=== PATIENT | female | born 1995 | race Caucasian/White ===

== ENCOUNTER 2018-04-11 13:11 | Inpatient (IN) ==
[2018-04-11] MEDS ORDERED: Oxytocin 30 Units/500ml Premix 30 UNITS/500 ML BAG IV.SIG ONE (14:10)
[2018-04-11] MEDS ORDERED: Sod Chloride 0.9% Inj 1,000 ML IV.CONT PRN (14:10)
[2018-04-11] MEDS ORDERED: fentaNYL Citrate Inj 100 MCG/2 ML Ampul IV.PUSH PRN ×2 (14:10)
[2018-04-11] MEDS ORDERED: Naloxone Inj 0.4 MG/ML Vial IV.PUSH PRN (14:10)
[2018-04-11] MEDS ORDERED: Sodium Chlor 0.9% Inj 500 ML IV.SIG PRN (14:10)
[2018-04-11] MEDS ORDERED: Oxytocin 30 Units/500ml Premix 30 UNITS/500 ML BAG IV.SIG PRN (14:14)
[2018-04-11] MEDS ORDERED: Citric Acid/Sodium Citrate Liq 30 ML UDC PO SCH (14:15)
[2018-04-11] MEDS ORDERED: Betamethasone Sod Phos/Acetate Inj 30 MG/5 ML Vial IM ONE (14:15)
--- NOTE | 2018-04-11 14:20 | ED ---
History of Present Illness Primary Care Physician: No Primary Care Physician Chief Complaint: ROM History of Present Illness: Pt is a 22y/o G1 @ 34.4wks. She has PNC with [facility]. She presents today for ROM at 8am with continued leaking. She has mild cramping. No LOF or VB. is otherwise uncomplicated. Weeks Gestation:: 34 Para: 0 : 1 - Inpatient Certification I certify that the inpatient services were ordered in accordance with Medicare regulations governing the order. This includes certification that hospital inpatient services are reasonable and necessary and in the case of services not specified as inpatient-only under 42 CFR 419.22(n), that they are appropriately provided as inpatient services in accordance to with the 2-midnight benchmark under 43 CFR 412.3(e) Estimated Total Length of Stay (Days): 3 Plans for Post Hospital Care: Home Review of Systems All other systems reviewed negative except as stated in HPI [facility] - Medical History Medical History: Medical History (Last Updated 04/11/18 @ 14:16 by Shannan Jerome MD) H/O wisdom tooth extraction Seasonal allergies - Tobacco History Second Hand Smoke Exposure: No Tobacco Use In Past 30 Days: No Smoking Status: Never smoker - Alcohol History How Often Do You Have a Drink Containing Alcohol: Never - Travel History History of Recent Travel: No Recent Travel in the [place] Within the Last 8 Weeks: No Recent Travel Out of the Country Within the Last 8 Weeks: No Medications and Allergies Active Medications: Active Medications Betamethasone Acet/Betameth SodPhos (Celestone Soluspan Inj) 12 mg IM ONCE ONE Stop: 04/11/18 14:16 Calcium Gluconate (Calcium Gluconate Inj) 1 gm IV.PUSH ONCE PRN PRN Reason: Magnesium toxicity Citric Acid/Sodium Citrate (Sodium Citrate/Citric Acid Liq) 30 ml PO PROFESSOR OF LAW [facility] Stop: 04/15/18 14:14 Fentanyl Citrate (Fentanyl Inj) 50 mcg IV.PUSH Q1H PRN PRN Reason: Pain Scale 3 - 5 Fentanyl Citrate (Fentanyl Inj) 100 mcg IV.PUSH Q1H PRN PRN Reason: PAIN SCALE 6 TO 10 Lactated Ringer's (Lr 1000 Ml Inj) 1,000 mls @ 125 mls/hr IV.CONT .Q8H [facility] Lactated Ringer's (Lr 1000 Ml Inj) 1,000 mls @ 3,000 mls/hr IV.SIG UNSCH PRN PRN Reason: compromise or epidural Sodium Chloride (Ns Inj) 500 mls @ 1,000 mls/hr IV.SIG UNSCH PRN PRN Reason: SEE LABEL COMMENTS Sodium Chloride (Ns Inj) 1,000 mls @ 100 mls/hr IV.CONT .Q10H PRN PRN Reason: SEE LABEL COMMENTS Oxytocin (Pitocin 30 Units/Ns 500 Ml Premix) 30 units in 500 mls @ 999 mls/hr IV.SIG BOLUS ONE Stop: 04/11/18 14:40 Lidocaine HCl (Xylocaine 1% Inj) 0.1 ml I-DERMAL PRN PRN PRN Reason: For IV start Stop: 04/14/18 14:09 Lidocaine HCl (Xylocaine 1% Inj) 10 ml INFILTRATN PRN PRN PRN Reason: For episiotomy repair Stop: 04/13/18 14:09 Mineral Oil (Muri-Lube Oil) 10 ml TOPICAL PRN PRN PRN Reason: PRN perineal massage Naloxone HCl (Narcan Inj) 0.1 mg IV.PUSH Q2M PRN PRN Reason: for opiate reversal Ondansetron HCl (Zofran Inj) 4 mg IV.PUSH Q6H PRN PRN Reason: NAUSEA OR VOMITING Sodium Chloride (Ns Flush) 2 ml IV.FLUSH BID SHEELA Sodium Chloride (Ns Flush) 2 ml IV.FLUSH PRN PRN PRN Reason: FLUSH AFTER USING IV ACCESS Allergies Allergy/AdvReac Type Severity Reaction Status Date / Time No Known Allergies Allergy Verified 04/11/18 14:07 Exam Vital signs: Vital Signs 04/11/18 13:34 Temperature 98.3 F Pulse Rate 101 H Respiratory Rate 18 Blood Pressure 117/82 Narrative: General: well developed, well nourished, no acute distress HEENT: normocephalic atraumatic, extraocular movements intact, neck supple Abdomen: soft, gravid, nontender, nondistended Uterus: fundus soft Extremities: full range of motion Skin: normal coloration, no rashes, no suspicious skin lesions noted Neurologic: cranial nerves 2-12 grossly intact, normal muscle tone, normal gait Psychiatric: normal mood and affect, appropriate FHTs: 140s, not yet reactive, no decels, moderate variability [place]: ctx q1-2m Cvx: /-1 Assessment and Plan - Diagnosis (1) 34 weeks gestation of Code(s): Z3A.34 - 34 weeks gestation of Status: Acute (2) premature rupture of membranes (PPROM) with unknown onset of labor Code(s): O42.919 - premature rupture of membranes, unspecified as to length of time between rupture and onset of labor, unspecified trimester Status: Acute - Plan 22y/o G1 @ 34.4wks with PPROM. -- admit to L&D -- IOL with pitocin -- BMZ q12hr x2 (do not delay IOL) -- rapid GBS/Cx ordered and pending Dr. Johnson, ecological economist, notified of pt status and agrees with POC. She will assume care of the pt. Courtesy orders placed. Discharge Plan - Discharge Disposition Patient Disposition: 30 Still Patient - Physicians Team ED Provider: Shannan Jerome V Primary Care Provider: Primary Care Fátima Pollard
[2018-04-11 14:33] LABS: Baso % (Auto) 0.1 % (0.0-2.0); Eos # (Auto) 0.1 th/mm3 (0.0-0.4); Eos % (Auto) 0.6 % (0.0-4.0); Hematocrit 34.9 % (35.0-46.0); Hemoglobin 11.7 gm/dL (11.6-15.3); Lymph # (Auto) 1.8 th/mm3 (1.0-4.8); Lymph % (Auto) 14.4 % (9.0-44.0); Mean Corpuscular HGB Conc 33.5 % (32.0-36.0); Mean Corpuscular Volume 89.8 fL (80.0-100.0); Mean Platelet Volume 9.1 fL (7.0-11.0); Mono # (Auto) 0.7 th/mm3 (0.0-0.9); Mono % (Auto) 5.7 % (0.0-8.0); Neut # (Auto) 9.7 th/mm3 (1.8-7.7); Neut % (Auto) 79.2 % (16.0-70.0); Platelet Count 268 th/mm3 (150-450); Red Blood Count 3.89 mil/mm3 (4.00-5.30); Red Cell Distribution Width 13.2 % (11.6-17.2); White Blood Count 12.3 th/mm3 (4.0-11.0)
[2018-04-11 17:06] LABS: Amphetamine Urine With Conf Neg (Neg); Benzodiazepine Urine With Conf Neg (Neg)
[2018-04-11 17:10] LABS: Bilirubin,Urine Negative (Negative); Clarity,Urine Clear (Clear); Color,Urine Yellow (Yellw/Straw); Glucose,Urine (UA) Negative (Negative); Leukocyte Esterase,Urine Negative (Negative); Mucus,Urine Few /lpf (Occasional); Nitrite,Urine Negative (Negative); Squamous Epithelial Cell,Urine 1 /hpf (0-5)
[2018-04-12] MEDS ORDERED: Betamethasone Sod Phos/Acetate Inj 30 MG/5 ML Vial IM ONE (02:30)
[2018-04-12] MEDS ORDERED: Oxytocin 30 Units/500ml Premix 30 UNITS/500 ML BAG IV.SIG PRN (09:03)
--- NOTE | 2018-04-12 09:11 | P.OBLABOR ---
Subjective Interval history: +FM, occas ctx Objective Vital Signs: Vital Signs - 8 hr 04/12/18 02:36 04/12/18 02:45 04/12/18 05:00 Temperature 98.1 F 98.1 F Pulse Rate 107 H Respiratory Rate 18 Blood Pressure 110/64 04/12/18 06:45 04/12/18 07:21 04/12/18 07:30 Temperature 98.0 F Pulse Rate 98 H 82 Respiratory Rate 18 8 L Blood Pressure 88/48 L 126/88 Objective: Pelvic Exam: Cervix: [-] 2cm Dilatation: [-] Effacement: [-] Station: [-] Presentation: [-] Membranes: [intact or ruptured] srom 04/11 Uterine Contractions: [-] FHT's: Category: [-] 1 Baseline: [-] Reactive: [-] Variability: [-] good Decels: [-] Weeks Gestation: 34 Patient Started Active Labor: Yes Active Labor Start Date: 04/12/18 Active Labor Start Time: 09:09 Medical Induction of Labor: No Artificial Rupture of Membrane: No Assessment and Plan - Diagnosis (1) 34 weeks gestation of Code(s): Z3A.34 - 34 weeks gestation of Status: Acute (2) premature rupture of membranes (PPROM) with unknown onset of labor Code(s): O42.919 - premature rupture of membranes, unspecified as to length of time between rupture and onset of labor, unspecified trimester Status: Acute - Plan 22y/o G1 @ 34.5wks with PPROM. pt dilated 2cm this am, will augment with pitocin, analgesia prn, got 2 doses of celestone since yesterday anticipate , pt had one decel this am but baby recovered well - Attending Attestation pt seen by me
[2018-04-12] MEDS ORDERED: fentaNYL 2MCG-Bupiv 0.125% Epi 150 ML EPIDURAL ONE (12:53)
[2018-04-12] MEDS ORDERED: Acetaminophen 325 MG Tablet PO PRN (15:10)
[2018-04-12] MEDS ORDERED: Naloxone Inj 0.4 MG/ML Vial IV.PUSH PRN (15:10)
[2018-04-12] MEDS ORDERED: Zolpidem Tartrate 5 MG Tablet PO PRN (15:10)
[2018-04-12] MEDS ORDERED: Witch Hazel 50%/Glyderin 12.5% 40 Pad Jar RECTAL PRN (15:10)
[2018-04-12] MEDS ORDERED: Bisacodyl 10 MG Supp RECTAL PRN (15:10)
[2018-04-12] MEDS ORDERED: Benzocaine 20% Top Spray 60 ML Can TOPICAL PRN (15:10)
--- NOTE | 2018-04-12 15:10 | P.OBDELI ---
Weeks Gestation: 34 Patient Started Active Labor: Yes Active Labor Start Date: 04/12/18 Active Labor Start Time: 09:00 Medical Induction of Labor: No Artificial Rupture of Membrane: No Anesthesia: Epidural Episiotomy: none Vaginal Delivery: Normal Presentation: Occiput anterior, Compound (hand) Nuchal Cord: x1 Delayed Cord Clamping (45 sec): Yes Placenta: Spontaneous delivery Laceration: 1 deg Repair: Chromic interrupted Estimated blood loss (mL): 250 Infant: Male Additional Information: possible amniotic band around left leg
[2018-04-12] MEDS ORDERED: fentaNYL 2MCG-Bupiv 0.125% Epi 150 ML EPIDURAL PRN (15:14)
[2018-04-12] MEDS ORDERED: fentaNYL Citrate Inj 100 MCG/2 ML Ampul EPIDURAL ONE (15:14)
[2018-04-12] MEDS ORDERED: Oxytocin 30 Units/500ml Premix 30 UNITS/500 ML BAG IV.CONT SCH (15:15)
[2018-04-12] MEDS ORDERED: Diphtheria/Tetanus/Pertussis Vaccine Inj 0.5 ML Syringe IM ONE (16:00)
[2018-04-12] MEDS ORDERED: Measles/Mumps/Rubella Vaccine Inj 0.5 ML Vial SQ ONE (16:00)
[2018-04-12] MEDS: Senna/Docusate Sodium 8.6/50 MG Tablet PO SCH (21:48)
[2018-04-13] MEDS: Senna/Docusate Sodium 8.6/50 MG Tablet PO SCH (08:11)
[2018-04-13] MEDS: Ibuprofen 400 MG Tablet PO PRN (08:12)
--- NOTE | 2018-04-13 08:46 | P.PNOB ---
Subjective Post day: 1 Interval history: s/p labor/PPROM delivery at 34w5d Objective Vital Signs/I&O: Vital Signs 04/12/18 08:54 04/12/18 10:00 04/12/18 10:30 Temperature Pulse Rate 108 H 103 H 83 Respiratory Rate Blood Pressure 127/82 122/71 109/64 04/12/18 10:34 04/12/18 10:40 04/12/18 11:00 Temperature Pulse Rate 95 H 88 Respiratory Rate 18 Blood Pressure 119/72 04/12/18 11:10 04/12/18 11:15 04/12/18 12:11 Temperature Pulse Rate 94 H 80 Respiratory Rate 20 Blood Pressure 135/118 H 04/12/18 12:40 04/12/18 13:10 04/12/18 13:15 Temperature 98.0 F Pulse Rate 85 100 H Respiratory Rate 20 Blood Pressure 108/67 127/81 04/12/18 13:55 04/12/18 14:15 04/12/18 14:25 Temperature Pulse Rate 83 98 H 117 H Respiratory Rate Blood Pressure 112/67 138/63 102/75 04/12/18 14:55 04/12/18 15:45 04/12/18 16:40 Temperature Pulse Rate 98 H 85 Respiratory Rate 20 20 Blood Pressure 121/58 L 124/61 04/12/18 17:05 04/12/18 19:25 Temperature 98.5 F 98.0 F Pulse Rate 75 89 Respiratory Rate 18 18 Blood Pressure 109/57 L 108/63 Intake & Output 04/12/18 04/13/18 04/13/18 18:59 06:59 18:59 Intake Total 100 / 100 100 / 100 Balance 100 / 100 100 / 100 Intake: IV 100 / 100 100 / 100 Ancef Inj 1,000 MG In NS Inj 100 / 100 100 / 100 100 ML @ 200 mls/hr IV.SIG Q8H SHEELA Rx#:[id number] Result Diagrams: 04/11/18 14:17 Objective Remarks: GENERAL: Well-nourished, well-developed patient. CARDIOVASCULAR: Regular rate and rhythm without murmurs, gallops, or rubs. RESPIRATORY: Breath sounds equal bilaterally. No accessory muscle use. ABDOMEN/GI: Abdomen soft, non-tender. Fundus: Firm, non-tender at umbilicus. GENITOURINARY: Light to moderate bleeding. EXTREMITIES: No cyanosis or edema, non-tender, without signs of DVT. Medications and IVs: Active Medications Acetaminophen (Tylenol) 650 mg PO Q4H PRN PRN Reason: PAIN SCALE 1 TO 2 Al Hydroxide/Mg Hydroxide (Milk Of Magnesia Liq) 30 ml PO Q12H PRN PRN Reason: Mild Constipation Benzocaine (Americaine 20% [place]) 1 spray TOPICAL Q4H PRN PRN Reason: For Perineum Discomfort Bisacodyl (Dulcolax Supp) 10 mg RECTAL DAILY PRN PRN Reason: SEVERE CONSITIPATION Calcium Gluconate (Calcium Gluconate Inj) 1 gm IV.PUSH ONCE PRN PRN Reason: Magnesium toxicity Citric Acid/Sodium Citrate (Sodium Citrate/Citric Acid Liq) 30 ml PO CEO [place] [facility] Stop: 04/15/18 14:14 Ephedrine Sulfate (Ephedrine/Ns Syringe) 10 mg IV.PUSH UNSCH PRN PRN Reason: SEE LABEL COMMENTS Stop: 04/13/18 15:14 Fentanyl Citrate (Fentanyl Inj) 50 mcg IV.PUSH Q1H PRN PRN Reason: Pain Scale 3 - 5 Fentanyl Citrate (Fentanyl Inj) 100 mcg IV.PUSH Q1H PRN PRN Reason: PAIN SCALE 6 TO 10 Cefazolin Sodium 1,000 mg/ (Sodium Chloride) 100 mls @ 200 mls/hr IV.SIG Q8H [facility] Last Admin: 04/13/18 06:05 Dose: 200 mls/hr Oxytocin (Pitocin 30 Units/Ns 500 Ml Premix) 30 units in 500 mls @ 2 mls/hr IV.SIG TITRATE PRN; Protocol PRN Reason: For induction of labor Last Admin: 04/12/18 10:08 Dose: 2 milliunit/min, 2 mls/hr Fentanyl/Bupivacaine/Sodium Chlor (Fentanyl 2 Mcg-Bupiv 0.125% Epi) 150 mls @ 10 mls/hr EPIDURAL PRN PRN PRN Reason: for Labor Pain Ibuprofen (Motrin) 800 mg PO Q8H PRN PRN Reason: For cramping Last Admin: 04/13/18 08:12 Dose: 800 mg Lactulose (Lactulose Liq) 30 ml PO DAILY PRN PRN Reason: SEVERE CONSITIPATION Lidocaine HCl (Xylocaine 1% Inj) 0.1 ml I-DERMAL PRN PRN PRN Reason: For IV start Stop: 04/14/18 14:09 Lidocaine HCl (Xylocaine 1% Inj) 10 ml INFILTRATN PRN PRN PRN Reason: For episiotomy repair Stop: 04/13/18 14:09 Mineral Oil (Muri-Lube Oil) 10 ml TOPICAL PRN PRN PRN Reason: PRN perineal massage Naloxone HCl (Narcan Inj) 0.1 mg IV.PUSH Q2M PRN PRN Reason: for opiate reversal Naloxone HCl (Narcan Inj) 0.1 mg IV.PUSH Q2M PRN PRN Reason: for opiate reversal Ondansetron HCl (Zofran Inj) 4 mg IV.PUSH Q6H PRN PRN Reason: NAUSEA OR VOMITING Ondansetron HCl (Zofran Odt) 4 mg PO Q6H PRN PRN Reason: NAUSEA OR VOMITING Senna/Docusate Sodium (Beckie-Colace) 1 tab PO BID [facility] Last Admin: 04/13/18 08:11 Dose: 1 tab Sennosides (Senokot) 17.2 mg PO Q12H PRN PRN Reason: Moderate Constipation Sodium Chloride (Ns Flush) 2 ml IV.FLUSH BID [facility] Last Admin: 04/13/18 03:26 Dose: Not Given Sodium Chloride (Ns Flush) 2 ml IV.FLUSH PRN PRN PRN Reason: FLUSH AFTER USING IV ACCESS Sodium Chloride (Ns Flush) 2 ml IV.FLUSH BID [facility] Last Admin: 04/13/18 03:27 Dose: Not Given Sodium Chloride (Ns Flush) 2 ml IV.FLUSH PRN PRN PRN Reason: FLUSH AFTER USING IV ACCESS Witch Trinity/Glycerin (Tucks Pads) 1 applicatio RECTAL QID PRN PRN Reason: HEMORRHOIDS Zolpidem Tartrate (Ambien) 5 mg PO HS PRN PRN Reason: SLEEP Assessment and Plan - Diagnosis (1) labor in third trimester with delivery Code(s): K08.409 - Partial loss of teeth, unspecified cause, unspecified class Status: Acute (2) 34 weeks gestation of Code(s): Z3A.34 - 34 weeks gestation of Status: Acute (3) premature rupture of membranes (PPROM) with unknown onset of labor Code(s): O42.919 - premature rupture of membranes, unspecified as to length of time between rupture and onset of labor, unspecified trimester Status: Acute - Plan PPD#1 - doing well, infant NICU status - anticipate pt d/c to home tmrw 04/14/18; continue supportive care Discharge Planning: routine (1) labor in third trimester with delivery Qualifiers: Fetus number: single or unspecified fetus Qualified Code(s): O60.14X0 - labor third trimester with delivery third trimester, not applicable or unspecified
[2018-04-14] MEDS: Senna/Docusate Sodium 8.6/50 MG Tablet PO SCH ×2 (01:48→09:28)
[2018-04-14] MEDS: Ibuprofen 400 MG Tablet PO PRN ×2 (01:48→10:23)
--- NOTE | 2018-04-14 08:41 | P.PNOB ---
Subjective Post day: 2 Interval history: PT is doing well. Baby in nicu, eating and on room air Objective Vital Signs/I&O: Vital Signs 04/13/18 15:20 04/14/18 01:45 04/14/18 02:00 Temperature 98.1 F Pulse Rate 80 64 Respiratory Rate 17 Blood Pressure 107/59 L 116/67 Result Diagrams: 04/11/18 14:17 Objective Remarks: GENERAL: Well-nourished, well-developed patient. CARDIOVASCULAR: Regular rate and rhythm without murmurs, gallops, or rubs. RESPIRATORY: Breath sounds equal bilaterally. No accessory muscle use. ABDOMEN/GI: Abdomen soft, non-tender. Fundus: Firm, non-tender at umbilicus. GENITOURINARY: Light to moderate bleeding. EXTREMITIES: No cyanosis or edema, non-tender, without signs of DVT. Medications and IVs: Active Medications Acetaminophen (Tylenol) 650 mg PO Q4H PRN PRN Reason: PAIN SCALE 1 TO 2 Al Hydroxide/Mg Hydroxide (Milk Of Magnesia Liq) 30 ml PO Q12H PRN PRN Reason: Mild Constipation Benzocaine (Americaine 20% [place]) 1 spray TOPICAL Q4H PRN PRN Reason: For Perineum Discomfort Last Admin: 04/14/18 01:47 Dose: 1 spray Bisacodyl (Dulcolax Supp) 10 mg RECTAL DAILY PRN PRN Reason: SEVERE CONSITIPATION Calcium Gluconate (Calcium Gluconate Inj) 1 gm IV.PUSH ONCE PRN PRN Reason: Magnesium toxicity Citric Acid/Sodium Citrate (Sodium Citrate/Citric Acid Liq) 30 ml PO AGRICULTURAL CHEMIST [facility] Stop: 04/15/18 14:14 Fentanyl Citrate (Fentanyl Inj) 50 mcg IV.PUSH Q1H PRN PRN Reason: Pain Scale 3 - 5 Fentanyl Citrate (Fentanyl Inj) 100 mcg IV.PUSH Q1H PRN PRN Reason: PAIN SCALE 6 TO 10 Oxytocin (Pitocin 30 Units/Ns 500 Ml Premix) 30 units in 500 mls @ 2 mls/hr IV.SIG TITRATE PRN; Protocol PRN Reason: For induction of labor Last Admin: 04/12/18 10:08 Dose: 2 milliunit/min, 2 mls/hr Fentanyl/Bupivacaine/Sodium Chlor (Fentanyl 2 Mcg-Bupiv 0.125% Epi) 150 mls @ 10 mls/hr EPIDURAL PRN PRN PRN Reason: for Labor Pain Ibuprofen (Motrin) 800 mg PO Q8H PRN PRN Reason: For cramping Last Admin: 04/14/18 01:48 Dose: 800 mg Lactulose (Lactulose Liq) 30 ml PO DAILY PRN PRN Reason: SEVERE CONSITIPATION Lidocaine HCl (Xylocaine 1% Inj) 0.1 ml I-DERMAL PRN PRN PRN Reason: For IV start Stop: 04/14/18 14:09 Mineral Oil (Muri-Lube Oil) 10 ml TOPICAL PRN PRN PRN Reason: PRN perineal massage Naloxone HCl (Narcan Inj) 0.1 mg IV.PUSH Q2M PRN PRN Reason: for opiate reversal Naloxone HCl (Narcan Inj) 0.1 mg IV.PUSH Q2M PRN PRN Reason: for opiate reversal Ondansetron HCl (Zofran Inj) 4 mg IV.PUSH Q6H PRN PRN Reason: NAUSEA OR VOMITING Ondansetron HCl (Zofran Odt) 4 mg PO Q6H PRN PRN Reason: NAUSEA OR VOMITING Senna/Docusate Sodium (Beckie-Colace) 1 tab PO BID [facility] Last Admin: 04/14/18 01:48 Dose: 1 tab Sennosides (Senokot) 17.2 mg PO Q12H PRN PRN Reason: Moderate Constipation Sodium Chloride (Ns Flush) 2 ml IV.FLUSH BID [facility] Last Admin: 04/14/18 02:05 Dose: Not Given Sodium Chloride (Ns Flush) 2 ml IV.FLUSH PRN PRN PRN Reason: FLUSH AFTER USING IV ACCESS Sodium Chloride (Ns Flush) 2 ml IV.FLUSH BID [facility] Last Admin: 04/14/18 02:05 Dose: Not Given Sodium Chloride (Ns Flush) 2 ml IV.FLUSH PRN PRN PRN Reason: FLUSH AFTER USING IV ACCESS [place]/Glycerin (Tucks Pads) 1 applicatio RECTAL QID PRN PRN Reason: HEMORRHOIDS Last Admin: 04/14/18 01:47 Dose: 1 applicatio Zolpidem Tartrate (Ambien) 5 mg PO HS PRN PRN Reason: SLEEP Assessment and Plan - Diagnosis (1) labor in third trimester with delivery Code(s): K08.409 - Partial loss of teeth, unspecified cause, unspecified class Status: Acute (2) 34 weeks gestation of Code(s): Z3A.34 - 34 weeks gestation of Status: Acute (3) premature rupture of membranes (PPROM) with unknown onset of labor Code(s): O42.919 - premature rupture of membranes, unspecified as to length of time between rupture and onset of labor, unspecified trimester Status: Acute - Plan PPD#2 - doing well, infant NICU status. Baby had suspected amniotic band around leg - anticipate pt d/c to home 04/14/18; continue supportive care Discharge Planning: routine (1) labor in third trimester with delivery Qualifiers: Fetus number: single or unspecified fetus Qualified Code(s): O60.14X0 - labor third trimester with delivery third trimester, not applicable or unspecified
[2018-04-14 09:25] VITALS: BP 116/80; PULSE 77; RESP 18; TEMP 97.8
== END 2018-04-14 10:15 | disposition home or self-care (01) ==
LOC: HOBED 13:11 → H2E 13:57 → H1EA 04-12 17:01
PROVIDERS: ADMIT Obstetrics & Gynecology; ATTEND Obstetrics & Gynecology